=== PATIENT | female | born 1940 | race Caucasian/White ===

== ENCOUNTER 2023-06-26 14:43 | Outpatient (CLI) | payer MEDICARE, BC ==
[~2023-06-26] VITALS: Ht 167.6 cm; Wt 54.4 kg
[2023-06-26] MEDS ORDERED: B COMPLEX PO (16:25)
[2023-06-26] MEDS ORDERED: ESTR-8 PO (16:25)
[2023-06-26] MEDS ORDERED: QUET25TA36 PO (16:25)
[2023-06-26] MEDS ORDERED: VITAMIN B12 PO (16:25)
[2023-06-26] MEDS ORDERED: ATOR-2 PO (16:25)
[2023-06-26] MEDS ORDERED: MIRT7.5T11 PO (16:25)
[2023-06-26] MEDS ORDERED: LISD40TA2 PO (16:25)
[2023-06-26] MEDS ORDERED: CLOP75TA34 PO (16:25)
[2023-06-26] MEDS ORDERED: LEVO50TA8 PO (16:25)
[2023-06-26] MEDS ORDERED: VITAMIN D PO (16:25)
[2023-06-26] MEDS ORDERED: TYLENOL PO (16:26)
[2023-06-26 16:29] LABS: BASOPHILS % (AUTO) 0.9 % (0-1); EOSINOPHILS % (AUTO) 0.7 % (0-6); LYMPHOCYTES # (AUTO) 1.2 X10'3 (1.1-4.8); LYMPHOCYTES % (AUTO) 23.9 % (21-51); MEAN CORPUSCULAR HEMOGLOBIN 32.6 PG (27.0-31.0); MEAN CORPUSCULAR HGB CONC 32.8 g/dL (33.0-36.5); MEAN CORPUSCULAR VOLUME 99.6 FL (78-98); MEAN PLATELET VOLUME 6.9 FL (7.4-10.4); MONOCYTES # (AUTO) 0.3 X10'3 (0-0.9); MONOCYTES % (AUTO) 6.9 % (2-12); NEUTROPHILS # (AUTO) 3.4 X10'3 (1.8-7.7); NEUTROPHILS % (AUTO) 67.6 % (42-75); PRE OP HEMOGLOBIN 13.8 g/dL (12.0-16.0); PRE OP PLATELET COUNT 211 X10'3 (140-440); RED BLOOD COUNT 4.22 X10'6 (4.20-5.60); RED CELL DISTRIBUTION WIDTH 14.1 % (11.5-14.5)
[2023-06-26 16:55] LABS: ALBUMIN/GLOBULIN RATIO 1.3 (1.1-1.5); ALKALINE PHOSPHATASE 53 IU/L (46-116); BLOOD UREA NITROGEN 16 MG/DL (7-18); BUN/CREATININE RATIO 15.7 (10.0-20.0); CALCIUM 9.4 MG/DL (8.5-10.1); CHLORIDE 106 MMOL/L (99-107); CREATININE 1.02 MG/DL (0.40-0.90); PRE OP ALT 22 U/L (30-65); PRE OP ANION GAP 10 (8-16); PRE OP AST 17 U/L (10-37); PRE OP BILIRUB, TOTAL 0.4 MG/DL (0.0-1.0); PRE OP GLUCOSE 105 MG/DL (70-104); PRE OP POTASSIUM 3.6 MMOL/L (3.4-5.1); PRE OP SODIUM 144 MMOL/L (135-145); THYROID STIMULATING HORMONE 0.54 ulU/ml (0.34-4.50); TOTAL CARBON DIOXIDE 28.1 MMOL/L (24-32); TOTAL PROTEIN 7.2 G/DL (6.4-8.2); eGFR 52 ML/MIN
[2023-07-02] MEDS ORDERED: CLINDAMYCIN 600mg IN NS 50ML 50 ML IV ONE (05:30)
[2023-07-02] MEDS ORDERED: famotidine 20mg tablet PO ONE (05:30)
[2023-07-02] MEDS ORDERED: ringers solution, lacted 1,000 ML IV SCH (05:30)
[2023-07-02] MEDS ORDERED: fentaNYL/PF 50MCG/1 ML 2ML syringe ONE (17:52)
[2023-07-02] MEDS ORDERED: LIDOcaine 2% Viscous 15ml cup ONE (17:52)
[2023-07-02] MEDS ORDERED: MIDAZolam 1 MG/ML 5ML VIAL ONE (17:52)
== END 2023-06-26 23:59 | disposition home or self-care (01) ==
LOC: LAB 14:43 → EDSTATUS 07-02 08:15
PROVIDERS: ATTEND Orthopaedic Surgery Hand Surgery
DX: Z01.818 Encounter for other preprocedural examination (principal); M67.932 Unspecified disorder of synovium and tendon, left forearm; E03.9 Hypothyroidism, unspecified; F41.9 Anxiety disorder, unspecified; F32.A Depression, unspecified; F90.9 Attention-deficit hyperactivity disorder, unspecified type; G62.9 Polyneuropathy, unspecified; F17.210 Nicotine dependence, cigarettes, uncomplicated; Z79.890 Hormone replacement therapy; Z79.899 Other long term (current) drug therapy; Z98.890 Other specified postprocedural states; Z88.0 Allergy status to penicillin; Z88.1 Allergy status to other antibiotic agents; Z88.8 Allergy status to other drugs, medicaments and biological substances
CPT/HCPCS: 36415; 80053; 84443; 85025; 93005; J2250; J3010; J3490; J7120

== ENCOUNTER 2023-12-31 07:18 | Day surgery (SDC) | payer MEDICARE, BC ==
[2023-12-27 14:19] LABS: BASOPHILS % (AUTO) 0.6 % (0-1); EOSINOPHILS % (AUTO) 0.8 % (0-6); LYMPHOCYTES # (AUTO) 1.1 X10'3 (1.1-4.8); LYMPHOCYTES % (AUTO) 19.6 % (21-51); MEAN CORPUSCULAR HEMOGLOBIN 33.3 PG (27.0-31.0); MEAN CORPUSCULAR VOLUME 100.8 FL (78-98); MEAN PLATELET VOLUME 7.3 FL (7.4-10.4); MONOCYTES # (AUTO) 0.3 X10'3 (0-0.9); MONOCYTES % (AUTO) 6.3 % (2-12); NEUTROPHILS % (AUTO) 72.7 % (42-75); PRE OP HEMATOCRIT 41.3 % (35.0-45.0); PRE OP HEMOGLOBIN 13.6 g/dL (12.0-16.0); PRE OP PLATELET COUNT 234 X10'3 (140-440); PRE OP WHITE BLOOD COUNT 5.5 10'3 (4.8-10.8); RED BLOOD COUNT 4.09 X10'6 (4.20-5.60); RED CELL DISTRIBUTION WIDTH 14.1 % (11.5-14.5)
[2023-12-27 14:33] LABS: ALBUMIN/GLOBULIN RATIO 1.3 (1.1-1.5); ALKALINE PHOSPHATASE 74 IU/L (46-116); BLOOD UREA NITROGEN 14 MG/DL (7-18); BUN/CREATININE RATIO 16.7 (10.0-20.0); CALCIUM 9.2 MG/DL (8.5-10.1); CHLORIDE 105 MMOL/L (99-107); CREATININE 0.84 MG/DL (0.40-0.90); PRE OP ALT 44 U/L (30-65); PRE OP ANION GAP 6 (8-16); PRE OP AST 28 U/L (10-37); PRE OP BILIRUB, TOTAL 0.6 MG/DL (0.0-1.0); PRE OP GLUCOSE 102 MG/DL (70-104); PRE OP POTASSIUM 3.9 MMOL/L (3.4-5.1); PRE OP SODIUM 139 MMOL/L (135-145); TOTAL CARBON DIOXIDE 27.9 MMOL/L (24-32); TOTAL PROTEIN 7.1 G/DL (6.4-8.2); eGFR 65 ML/MIN
[~2023-12-31] VITALS: Ht 167.6 cm; Wt 53.1 kg
[2023-12-31] MEDS: clindamycin-Cleocin 900mg/D5W 50 ML IV ONE (05:30)
[~2023-12-31 07:18] MED LIST: ACET-814 PO; ATOR-2 PO; CLOP75TA34 PO; LEVO50TA8 PO; LISD70CA PO; MIRT7.5T11 PO; VITA1CAP PO; ZOLP10TA PO
[2023-12-31 07:25] VITALS: BP 147/83; PULSE 73; RESP 17; TEMP 98.3; O2SAT 98
[2023-12-31] MEDS ORDERED: BUPIVAcaine/PF 2.5mg/ml (0.25%) 10ml vial ONE (07:37)
[2023-12-31] MEDS ORDERED: ringers solution, lacted 1,000 ML IV SCH (07:55)
[2023-12-31] MEDS ORDERED: meperidine/PF 25mg/ml syringe IV PRN ×3 (07:55)
[2023-12-31] MEDS ORDERED: ondansetron/PF 4mg/2ml inj IV PRN (07:55)
[2023-12-31] MEDS ORDERED: morphine 2 MG/ML inj. syringe IV PRN (07:55)
[2023-12-31] MEDS ORDERED: morphine 4 MG/ML inj SYRINge IV PRN (07:55)
[2023-12-31] MEDS ORDERED: proCHLORperazine 10 MG/2 ml inj IV PRN (07:55)
[2023-12-31] MEDS: famotidine 20mg tablet PO ONE (08:18)
[2023-12-31] MEDS: ringers solution, lacted 1,000 ML IV SCH (08:18)
[2023-12-31] MEDS ORDERED: midazolam 1 mg/ML 2ml injection ONE (09:05)
[2023-12-31] MEDS ORDERED: fentaNYL/PF 50MCG/1 ML 2ML syringe ONE (09:05)
[2023-12-31] MEDS ORDERED: propofol inj 20 ML IV ONE (09:41)
[2023-12-31 09:44] VITALS: BP 126/75; PULSE 72; RESP 14; O2SAT 96
[2023-12-31 09:50] VITALS: BP 128/71; PULSE 65; RESP 11; O2SAT 96
[2023-12-31 10:00] VITALS: BP 120/70; PULSE 64; RESP 10; O2SAT 99
[2023-12-31 10:10] VITALS: BP 130/74; PULSE 71; RESP 11; O2SAT 98
[2023-12-31 10:20] VITALS: BP 132/69; PULSE 69; RESP 12; O2SAT 99
== END 2023-12-31 10:24 | disposition home or self-care (01) ==
LOC: PAS 07:18
PROVIDERS: ATTEND Orthopaedic Surgery Hand Surgery
DX: M25.342 Other instability, left hand (principal); J44.9 Chronic obstructive pulmonary disease, unspecified; E03.9 Hypothyroidism, unspecified; E78.5 Hyperlipidemia, unspecified; F41.9 Anxiety disorder, unspecified; F32.A Depression, unspecified; F90.9 Attention-deficit hyperactivity disorder, unspecified type; G62.9 Polyneuropathy, unspecified; Z86.73 Personal history of transient ischemic attack (TIA), and cerebral infarction without residual deficits; Z79.02 Long term (current) use of antithrombotics/antiplatelets; Z79.890 Hormone replacement therapy; Z79.899 Other long term (current) drug therapy; Z90.49 Acquired absence of other specified parts of digestive tract; Z98.890 Other specified postprocedural states; Z88.0 Allergy status to penicillin; Z88.1 Allergy status to other antibiotic agents; Z88.8 Allergy status to other drugs, medicaments and biological substances
CPT/HCPCS: 26437; 36415; 80053; 82948; 85025; A4215; A4618; A6449; A7000; J2250; J2704; J3010; J3490; J7030; J7120; Z7506; Z7512; Z7610